=== PATIENT | male | born 1990 | race African-American/Black ===

== ENCOUNTER 2020-09-13 13:42 | Emergency (ER) | payer BC ==
[~2020-09-13] VITALS: Ht 170.2 cm; Wt 68.0 kg
[2020-09-13] MEDS ORDERED: LORAZEPAM 2MG/ML CPJ IV PRN (14:30)
[2020-09-13] MEDS ORDERED: LACTATED RINGERS 1,000 ML IV SCH (14:30)
[2020-09-13 14:37] LABS: HEMATOCRIT. 35.3 % (42.0-52.0); HEMOGLOBIN. 12.5 g/dL (14.0-18.0); MEAN CORPUSCULAR VOLUME 95.8 fL (80.0-94.0); PLATELET 163 x1000/uL (130-400); RED BLOOD CELL COUNT 3.68 mill/uL (4.7-6.1); RED CELL DISTRIBUTION WIDTH 13.4 % (11.6-14.6)
[2020-09-13 14:50] LABS: CHLORIDE 97 mEq/L (98-107)
[2020-09-13 14:55] LABS: ETHANOL BLOOD < 10 mg/dL
[2020-09-13 15:03] LABS: PLATELET ESTIMATE NORMAL
[2020-09-13] MEDS ORDERED: LORAZEPAM 1MG TABLET PO ONE (16:15)
[2020-09-13] MEDS ORDERED: LEVETIRACETAM 500MG PREMIX 100 ML IV ONE ×2 (16:15)
[2020-09-13 17:08] LABS: CLARITY URINE CLEAR (CLEAR); COLOR URINE YELLOW (YELLOW); KETONES URINE NEGATIVE (NEGATIVE); LEUKOCYTE ESTERASE URINE NEGATIVE (NEGATIVE); NITRITE URINE NEGATIVE (NEGATIVE); OCCULT BLOOD URINE 1+ (NEGATIVE); PROTEIN URINE 1+ (NEGATIVE); SPECIFIC GRAVITY URINE 1.008 (1.005-1.030); UROBILINOGEN URINE 0.2 E.U./dL (0.2-1.0)
[2020-09-13 17:21] LABS: *AMPHETAMINES SCREEN URINE NEGATIVE (NEGATIVE); *BARBITURATES SCREEN URINE NEGATIVE (NEGATIVE); *COCAINE SCREEN URINE NEGATIVE (NEGATIVE)
[2020-09-13 17:22] LABS: OPIATES URINE SCREEN NEGATIVE (NEGATIVE); PHENCYCLIDINE URINE SCREEN NEGATIVE (NEGATIVE)
[2020-09-13 17:24] LABS: *BENZODIAZEPINES SCREEN URINE NEGATIVE (NEGATIVE); CANNABINOID URINE SCREEN NEGATIVE (NEGATIVE)
[2020-09-13 17:25] LABS: METHADONE URINE SCREEN NEGATIVE (NEGATIVE)
[2020-09-13 20:00] VITALS: BP 122/86
[2020-09-13] MEDS ORDERED: KEPP500 MT (20:34)
== END 2020-09-13 20:50 | disposition left against medical advice (07) ==
LOC: ER 13:42
DX: R56.9 Unspecified convulsions (principal); Z98.890 Other specified postprocedural states
CPT/HCPCS: 36415; 70450; 80053; 80305; 80320; 81003; 82962; 84443; 85025; 93005; 96361; 96365; 96366; 99285; J1953; J7070; G0480